=== PATIENT | female | born 1955 | race Caucasian/White ===

== ENCOUNTER 2023-10-06 08:56 | Emergency (ER) | payer OTHER, SELFPAY ==
[2023-10-06 09:03] VITALS: BP 171/86
--- NOTE | 2023-10-06 09:34 | ED.GENMED ---
History of Present Illness
General
Chief Complaint: Fall
Source: patient
Exam Limitations: none
Time Seen by Provider: 10/06/23 09:24
Travel History
Have you had any contact with someone who has COVID-19?: No
Do you have any symptoms of coronavirus? Fever > 100 degrees, chills, cough, shortness of breath, sore throat, loss of taste or smell, muscle aches, or headache?: No
History of Present Illness
History of Present Illness:
67-year-old female slipped on the ice landing hard on the back of her head. Occurred about an hour ago. Ongoing posterior headache. No neck pain no nausea or vomiting. No other injury or complaint. No thinners
Phy Exam
Physical Exam
Physical Exam:
TRAUMA EXAM:
VITAL SIGNS: Vital signs reviewed, cooperative
DISTRESS: No active disease
EYES: Pupils reactive, no orbital trauma
NOSE: No deformity or epistaxis
FACE AND SCALP: No scalp or facial trauma, external canals no blood
NECK: Supple nontender
BACK: Back nontender, pelvis stable to compression
RESPIRATORY: No distress, breath sounds normal, no tender chest wall
CARDIAC: No murmur, pulses equal and strong
ABDOMEN: Soft nontender bowel sounds normal
SKIN: Skin intact no bleeding, color normal
EXTREMITIES: Nontender
NEUROLOGICAL: Alert, oriented, no motor deficits
PSYCH: Mood affect normal
Course
Orders/Labs/Results
Orders:
Orders
10/06/23 09:34
CT Head W/o Iv Contrast Urgent
Comment:
Reason For Exam: Head injury
Vital Signs
Initial and Last Documented VS:
Initial Vital Signs
Temp Pulse Resp BP Pulse Ox
98.3 F 77 18 171/86 95
10/06/23 09:03 10/06/23 09:03 10/06/23 09:03 10/06/23 09:03 10/06/23 09:03
Last Documented Vital Signs
Temp Pulse Resp BP Pulse Ox
98.3 F 77 18 171/86 95
10/06/23 09:03 10/06/23 09:03 10/06/23 09:03 10/06/23 09:03 10/06/23 09:03
MDM/Problems Addressed
Differential Diagnosis Includes:
Patient with posterior head injury. No other injury or complaint. No neck symptoms. Arguably CT would be reasonable to hold given that she is awake alert no vomiting no change in mental status no thinners. However mechanism warrants CT scan.
Discussed with patient
*Radiology
Radiology exam reviewed: radiology read reviewed (Negative)
*Pulse Oximetry
Patient hypoxic: no
*Critical Care Note
Total Time (30-74mins, 75-104mins- exclusive of procedures): Not Applicable
Update Note
Update Note:
CT negative. Stable for discharge to follow-up
ED Attending Note
-
Portions of this chart may have been created with voice recognition software.� Occasional wrong word or��sound alike� substitutions may have occurred due to the inherent limitations of voice recognition software.
Discharge Plan
Departure
Patient Disposition: Home (Routine Discharge)
Date of Disposition: 10/06/23
Time of Disposition: 10:16
Patient with high blood pressure during this ER visit?: Yes
Discharge Problem:
Closed head injury
Instructions: Head Injury in Adults (DC), BLOOD PRESSURE
Referrals:
Edson Clemons MD [Family Provider] - Follow up in 2-3 days
Interventions
Interventions:
*Risk Screen - Suicide Last Done: 10/06/23 09:05
*General Assessment Last Done: 10/06/23 09:05
*Neglect/Abuse Screening Last Done: 10/06/23 09:05
== END 2023-10-06 10:36 | disposition home or self-care (01) ==
LOC: EMR 08:56
PROVIDERS: EMERGENCY PHYSICIAN Emergency Medicine; FAMILY PHYSICIAN Family Medicine
DX: S09.90XA Unspecified injury of head, initial encounter (principal); R51.9 Headache, unspecified; W00.0XXA Fall on same level due to ice and snow, initial encounter; R03.0 Elevated blood-pressure reading, without diagnosis of hypertension
CPT/HCPCS: 99284; 70450